=== PATIENT | male | born 1955 | race Caucasian/White ===

== ENCOUNTER 2017-03-07 20:26 | Emergency (ER) | payer OTHER ==
[~2017-03-07] VITALS: Ht 182.9 cm; Wt 81.7 kg
--- NOTE | ~2017-03-07 | EKG ---
[address] [place] [address] ELECTROCARDIOGRAM REPORT Name: DIANE SLATER [facility] [id number] Admission: 03/07/17 Attend Phys: Discharge: 03/07/17 Date of : 55 Report #: [id number] THIS REPORT FOR: //name// [facility] ED Test Date: 2017-03-07 Test Time: 20:40:31 Pat Name: DIANE SLATER Department: Room: Gender: Manager Art: ALEKSANDRARAGHU : 1955 Requested By: Regulo Cobos Order Number: [id number] MD: Yasir Varela Measurements Intervals [place] Rate: 82 P: 1 CT: 149 QRS: -17 QRSD: 101 T: 31 QT: 392 QTc: 458 Interpretive Statements Sinus rhythm Borderline left axis deviation Abnormal R-wave progression, early transition No previous ECG available for comparison Electronically Signed On 03-08-2017 9:26:21 CDT by Yasir Varela [email or web address] <ELECTRONICALLY SIGNED> By: Yasir Varela MD, [facility] 03/08/17 0926 39 Yasir Varela MD, FACC /EPI
[2017-03-07] MEDS ORDERED: NORVASC10 MG PO (20:33)
[2017-03-07 20:47] LABS: HEMOGLOBIN 14.6 gm/dL (14.0-18.0); MCH 35.4 pg (26.0-34.0); PLATELET COUNT 217 thou/uL (150-400); RBC 4.13 mil/uL (4.50-6.00); RDW 14.3 % (10.5-14.5)
[2017-03-07 20:49] LABS: MANUAL DIFF YES
[2017-03-07 21:05] LABS: ANION GAP 16 mmol/L (7-16); BUN 7 mg/dL (7-18); CALCIUM 9.1 mg/dL (8.5-10.1); CHLORIDE 106 mmol/L (98-107); CO2 22 mmol/L (21-32); CREATININE 0.9 mg/dL (0.7-1.3); GLUCOSE 87 mg/dL (74-106); POTASSIUM 3.4 mmol/L (3.5-5.1); SODIUM 144 mmol/L (136-145)
[2017-03-07 21:11] LABS: ABSOLUTE NEUTROPHILS 6.7 thou/uL (1.4-8.2); MACROCYTES 1+; METAMYELOCYTES 1 %; MYELOCYTES 1 %; TOTAL CELL COUNT 100
[2017-03-07 21:14] LABS: TROPONIN-I < 0.04 ng/mL (<0.04-0.07)
[2017-03-07 22:14] VITALS: BP 127/83
== END 2017-03-07 22:15 | disposition home or self-care (01) ==
LOC: ER 20:26
PROVIDERS: Physician Assistant
DX: R07.89 Other chest pain (principal); I10 Essential (primary) hypertension; F17.210 Nicotine dependence, cigarettes, uncomplicated; F10.99 Alcohol use, unspecified with unspecified alcohol-induced disorder; Z88.8 Allergy status to other drugs, medicaments and biological substances